=== PATIENT | female | born 1940 | race Caucasian/White ===

== ENCOUNTER → 2017-04-15 | Outpatient (CLI) | payer OTHER ==
[~2017-04-15] MED LIST: AMLO5TAB2 PO; ASPI81TA85 PO; CALA80TA PO; DEXA4TA PO; HYOS0.1259 PO; KEPP1TAB PO; LANO0.1211 PO; LORA0.5T11 PO; MORP1SOL PO; MULT1TAB8 PO; NAPR500T PO; PERC5TAB12 PO; PRED10TA PO; PRED20TAB PO; PROAAER10 INH; PROT1TAB2 PO; RANI150T PO; SYMB16INH INH; TRAM50TA2 PO; TYLE500T78 PO; ULTR37.54 PO
--- NOTE | 2017-04-15 21:56 | ECHO ---
DATE OF PROCEDURE: 04/15/2017 REFERRING PHYSICIAN: Abbie Jean Study was performed on 04/15/2017 on an outpatient basis for indication of transient ischemic attack (TIA). The patient measures 147 cm and weighs 46 kg. DIMENSIONS: IVS: 1.1 LV: 4.7 LVPW: 1.1 LA: 3.5 Aorta: 2.9 FINDINGS: The study is of acceptable technical quality. There are fair parasternal views but good apical views and difficult subcostal views. The patient is in sinus rhythm. Left ventricle is of normal size and grossly normal contractility. I estimate ejection fraction (EF) around 55-60%. No distinct segmental wall motion abnormalities are appreciated. Right ventricle does not appear enlarged. Left atrium is at least mildly enlarged. Right atrium is probably normal. Aortic valve is sclerotic but it has three cusps and preserved mobility. There are degenerative abnormalities of mitral valve with thickening of mitral leaflets and mitral annular calcifications that are mild. Leaflet mobility is again preserved. Tricuspid and pulmonic valves appear grossly normal. No pericardial effusion is present. Inferior vena cava is of relatively small caliber. Aortic root is normal. Aortic arch and abdominal aorta were not visualized. Doppler interrogation of aortic valve reveals no stenosis or insufficiency. There is approximately mild to moderate mitral insufficiency. There is trace tricuspid insufficiency. Unfortunately, quality of TR jet was not sufficient to adequately estimate pulmonary artery pressure. Pulmonic valve is functionally competent. Mitral inflow pattern and tissue Doppler imaging of mitral annulus reveal grade 1 diastolic dysfunction. CONCLUSIONS; 1. Study is of acceptable technical quality. 2. Normal LV size and systolic function, grade 1 diastolic dysfunction. 3. Degenerative abnormalities of aortic and mitral valve resulting in no significant aortic disease and [id number] mitral insufficiency. 4. Likely normal or low central venous pressure. Unable to estimate pulmonary artery pressure. COMMENT: Subacute bacterial endocarditis (SBE) prophylaxis is not recommended. No obvious findings to explain TIA.
== END ==
LOC: M CARPUL 09:57
PROVIDERS: ATTEND Physician Assistant Medical
DX: G45.9 Transient cerebral ischemic attack, unspecified (principal); R53.1 Weakness; R47.89 Other speech disturbances; R51 Headache

== ENCOUNTER 2017-04-21 15:36 | Inpatient (IN) | payer OTHER, MEDICARE ==
[~2017-04-21] VITALS: Ht 144.8 cm; Wt 44.2 kg
[~2017-04-21 15:36] MED LIST changes: -AMLO5TAB2 PO; -ASPI81TA85 PO; -DEXA4TA PO; -HYOS0.1259 PO; -KEPP1TAB PO; -LORA0.5T11 PO; -MORP1SOL PO; -RANI150T PO; +dexameTHASONE 4 MG/ML 1ML VIAL (J1100) IV SCH
[2017-04-21] MEDS ORDERED: RANI150T PO (15:59)
[2017-04-21] MEDS ORDERED: ASPI81TA85 PO (15:59)
[2017-04-21 16:46] LABS: BASO % 1.1 % (0.0-1.0); EOS # 0.1 K/mm3 (0.0-0.50); EOS % 2.6 % (0.0-3.0); LARGE UNSTAINED CELL # 0.1 K/mm3 (0.0-0.4); LARGE UNSTAINED CELL % 1.5 % (0.0-4.0); LYMPH % 19.4 % (24.0-44.0); MEAN CORPUSCULAR HEMOGLOBIN 33.9 pg (27.0-33.0); MEAN CORPUSCULAR HGB CONC 32.7 g/dl (32.0-36.5); MEAN CORPUSCULAR VOLUME 103.6 fl (80.0-96.0); MONO # 0.3 K/mm3 (0.0-0.8); NEUTROPHILS # 3.3 K/mm3 (1.8-7.7); NEUTROPHILS % 69.3 % (36.0-66.0); PLATELET COUNT, AUTOMATED 292 k/mm3 (150-450); RED CELL DISTRIBUTION WIDTH 13.7 % (11.5-14.5); WHITE BLOOD COUNT 4.7 K/mm3 (4.0-10.0)
[2017-04-21 16:51] LABS: INR 0.86
--- NOTE | 2017-04-21 17:01 | REP ---
CT HEAD WITHOUT CONTRAST: HISTORY: Infarction. A hypodense mass is present in the right parietal lobe. The mass measures 1.5 cm in transverse x 2.4 cm in AP dimensions. Surrounding vasogenic edema is present. There is mass effect with partial effacement of the body of the right lateral ventricle with very minimal midline shift to the left. Areas of decreased attenuation are present in the periventricular white matter. This represents small vessel ischemic disease. There is no intraparenchymal hemorrhage. There is no hydrocephalus or extracerebral collection. IMPRESSION: There is a hypodense mass in the right parietal lobe with surrounding vasogenic edema and midline shift to the left. This may represent a primary or metastatic brain tumor. MR of the brain without and with contrast is recommended for further evaluation. Signed by Nino Ritchie MD 04/21/2017 05:06 P
--- NOTE | 2017-04-21 17:02 | REP ---
Portable chest x-ray: Single view. History: CVA. Comparison study 11/08/2014. Findings: EKG electrodes are seen. Mild cardiomegaly is observed. There is no evidence of pleural effusion or pulmonary edema. No infiltrate is seen. The aorta is tortuous. Pulmonary vasculature is not increased. There is diffuse osteopenia. Impression: Cardiomegaly. Otherwise no acute disease. Signed by Jasbir Lawson MD 04/21/2017 05:13 P
[2017-04-21 17:21] LABS: ANION GAP 8 MEQ/L (8-16); BLOOD UREA NITROGEN 18 MG/DL (7-18); CALCIUM LEVEL 9.5 MG/DL (8.8-10.2); CARBON DIOXIDE LEVEL 27 MEQ/L (21-32); CHLORIDE LEVEL 106 MEQ/L (98-107); CREATININE FOR GFR 1.21 MG/DL (0.55-1.02); GLOMERULAR FILTRATION RATE 46.1 (>39); GLUCOSE, FASTING 91 MG/DL (83-110); POTASSIUM SERUM 4.1 MEQ/L (3.5-5.1); SODIUM LEVEL 141 MEQ/L (136-145)
[2017-04-21] MEDS ORDERED: ACETAMINOPHEN TAB 650MG DOSE (2X325MG) PO ONE (18:15)
[2017-04-21] MEDS ORDERED: LORazepam 2 MG/ML VIAL (J2060) IV PRN (18:30)
[2017-04-21] MEDS ORDERED: ONDANSETRON 4MG/2ML VIAL (J2405) IV PRN (18:30)
--- NOTE | 2017-04-21 19:48 | ECGEPIP ---
Stationary ECG Study [facility] - ED Test Date: 2017-04-21 Pat Name: LOURDES BEAVERS Department: Room: - Gender: F Electrotyper Helper: PALAK : 1940 Requested By: Elli Sykes Order Number: [id number] Reading MD: Sahil Mayer Measurements Intervals [place] Rate: 82 P: 49 MS: 119 QRS: -35 QRSD: 93 T: -7 QT: 363 QTc: 426 Interpretive Statements SINUS RHYTHM WITH SHORT MS INTERVAL POSSIBLE LAE LEFT VENTRICULAR HYPERTROPHY AND ST-T CHANGE INFERIOR MYOCARDIAL INFARCTION, OF INDETERMINATE AGE Electronically Signed On 04-21-2017 19:48:02 EDT by Sahil Mayer
[2017-04-21] MEDS ORDERED: GASTROGRAFIN SOLUTION 30ML (Q9963) PO ONE (20:00)
[2017-04-21] MEDS ORDERED: NS 500 ML IV ONE (20:00)
[2017-04-21] MEDS ORDERED: dexameTHASONE 20 MG/5 ML VIAL (J1100) IV ONE (20:00)
[2017-04-21] MEDS ORDERED: ALBUTEROL SULFATE 2.5 MG/0.5 ML INH NEB SOLN INH PRN (20:15)
[2017-04-21] MEDS ORDERED: SODIUM CHLORIDE 0.9% 1000 ML IV ONE (20:15)
[2017-04-21] MEDS ORDERED: ACETAMINOPHEN 500 MG TAB PO PRN (20:15)
[2017-04-21] MEDS ORDERED: NICOTINE 14 MG/24 HR TRANSDERMAL TD PRN (20:15)
[2017-04-21] MEDS ORDERED: levETIRAcetam INJection 500 MG in D5W 100 ML IV ONE (21:00)
--- NOTE | 2017-04-21 21:37 | HPE ---
DATE OF ADMISSION: 04/21/2017 Ms. Martinez is a patient of the family medicine group, Abbie Jean. CHIEF COMPLAINT: Could not walk. The following is a summary of her presentation: This is a 76-year-old who has not been doing well recently. There has been concerns that she was having transient ischemic attacks (TIAs). She had undergone outpatient workup, including an echocardiogram and had been planned for outpatient MRI. Over the course of the last few weeks, she has been intermittently disoriented and short episodes. She has been befuddled and not her normal self mentally. No complaints of pain, chest pain, shortness of breath. She does have a chronic cough; today it was somewhat worse. She had left-sided weakness and could not walk or stand. She was brought to the emergency department for evaluation. As part of the workup, she had a CT scan of her head, which showed evidence of mass with edema and midline shift. In the emergency room (ER), the neurosurgeon was alerted. He suggested further workup, and I was called for admission. PAST MEDICAL HISTORY: Notable for: Osteoarthritis. Chronic obstructive pulmonary disease (COPD) with normal pulmonary function test (PFT) 03/2014. History of gastric ulcer and repair. History of alcohol abuse. No current alcohol use. Nicotine dependence. She continues to smoke. Vitamin D deficiency. Osteoporosis. Hyperlipidemia. ALLERGIES: She had an allergy to DOXYCYCLINE. SURGICAL HISTORY: Notable for; Hysterectomy. Perforated gastric ulcer repair by Dr. Joseph. FAMILY HISTORY: Notable for father who at age 73 with myocardial infarction (MS) and mother at age 71 in a motor vehicle accident. SOCIAL HISTORY: She continues to smoke cigarettes. MEDICATIONS AT HOME: Include the following: - aspirin 81 mg daily - Tylenol - ranitidine 150 mg by mouth daily REVIEW OF SYSTEMS: Notable for generalized headache. No visual changes. No runny nose. No sore throat. No cough. No shortness of breath. No orthopnea. No paroxysmal nocturnal dyspnea. She had left-sided weakness, which has been resolving. No history of seizure or seizure-like activity. PHYSICAL EXAMINATION: Temperature 99.2, pulse 78, respiratory rate 18, blood pressure 191/93, 97% on room air. Body mass index is 20.8. She is awake, appropriately interactive, pleasantly conversant and intermittently making jokes and making fun of our president. Head is Normocephalic. Sinuses are nontender. Pupils equal, round and reactive, anicteric, noninjected. Nasal septum is midline. Mucous membranes are moist. Neck is supple. No cervical or supraclavicular adenopathy. Breathing is symmetrical. I:E ratio is 1:3. Heart is distant sounding. Normal S1, S2. Radial pulse is 2+. Capillary refill is less than 2 seconds. Left upper extremity strength is 4+. Left lower extremity strength is 4+. White cell count 4.7, hemoglobin 14.8, platelets of 292. INR is 0.86, BUN 18, creatinine 1.21, slightly above baseline, troponin less than 0.02. Chest x-ray shows cardiomegaly. Head CT shows a hypodense mass in the right parietal lobe with surrounding vasogenic edema and midline shift to the left. My assessment is as follows: This is a 76-year-old with newly diagnosed brain tumor. Patient will be admitted to the progressive care unit (PCU) for a two midnight hospital stay. Plan will be as follows: 1. Neurologic: Patient will receive Decadron and Keppra. Seizure precautions will be undertaken. MRI of the brain is ordered. Also ordered a CT of the chest, abdomen and pelvis looking for evidence of other malignancy. There is nothing on physical exam that suggests malignancy apart from a relatively low body mass index (BMI). 2. The patient has a history of peptic ulcer. Will continue her H2 soni. 3. The patient has a history of ongoing nicotine dependence, so a nicotine patch will be made available to her if she so desires it. 4. Patient has a history of hyperlipidemia. 5. The patient has a history of chronic obstructive pulmonary disease with normal pulmonary function tests. 6. Patient currently is a FULL CODE and has named her son, Cam Martinez, as her healthcare proxy. Healthcare proxy form is in the chart.
[2017-04-21] MEDS ORDERED: ISOVUE-370 76% 100ML VIAL (Q9967) As Ordered ONE (22:00)
[2017-04-21 22:30] VITALS: BP 189/90
--- NOTE | 2017-04-21 22:40 | REPUSA ---
CT of the abdomen and pelvis with contrast Clinical statement: Pain Brain mass. Technique: Multiple axial CT images were obtained from the base of the lungs through the floor of the pelvis utilizing 5 mm axial slices after administration of oral and nonionic intravenous contrast. C oronal and sagittal reconstructions were also obtained. Comparison: 04/21/2017. Findings: Chest: The visualized lung bases are clear. Abdomen: The liver, spleen, pancreas, kidneys, gallbladder, and adrenal glands are unremarkable. The aorta demonstrates moderate diffuse atherosclerotic calcifications, but is otherwise within normal l imits. There is no evidence of abdominal lymphadenopathy or ascites. Pelvis: The bowel is unremarkable, with no obstructive or inflammatory changes. The urinary bladder i s within normal limits. The other pelvic structures appear grossly intact. There is no evidence of pe lvic lymphadenopathy or ascites. Bones: There are no suspicious osseous abnormalities seen. Severe chronic compression fractures are s een at T11 and T12. Mild osteopenia is appreciated. Impression: 1. No acute intra-abdominal abnormality. 2. Moderate diffuse atherosclerosis of the abdominal aorta, without evidence of aneurysm or dissectio n. 3. Mild diffuse osteopenia. Severe chronic compression fractures at T11 and T12. 4. No evidence of metastatic disease.
--- NOTE | 2017-04-21 22:40 | REPUSA ---
CT angiogram of the chest Clinical statement: brain mass. Technique: Multiple axial CT images were obtained from the thoracic inlet through the upper abdomen a fter a bolus administration of nonionic intravenous contrast. Coronal and sagittal reconstructions we re also obtained. Comparison: None. Findings: The pulmonary arteries are well-opacified with contrast, with no intraluminal filling defec ts to suggest embolism. The thoracic aorta is unremarkable. Thyroid gland is within normal limits. Th ere is no thoracic lymphadenopathy. There are no pericardial or pleural effusions. The lungs are patricia r. Limited imaging of the upper abdomen is unremarkable. There are chronic compression fractures th roughout the thoracic spine. Mild diffuse osteopenia is noted. Impression: 1. No acute intrapulmonary disease. No metastatic disease appreciated. No evidence of pulmonary embo lism. 2. Severe multilevel compression fractures throughout the thoracic spine with mild diffuse osteopenia noted.
[2017-04-21] MEDS: ACETAMINOPHEN TAB 650MG DOSE (2X325MG) PO PRN (23:46)
[2017-04-22] VITALS (7 sets, daily range): BP systolic 117–175; BP diastolic 64–100
[2017-04-22] MEDS: amLODIPine 5 MG TAB PO SCH ×2 (02:00→08:56)
[2017-04-22] MEDS: dexameTHASONE 4 MG/ML 1ML VIAL (J1100) IV SCH ×4 (02:00→20:33)
[2017-04-22] MEDS: ACETAMINOPHEN TAB 650MG DOSE (2X325MG) PO PRN ×2 (08:32→20:32)
[2017-04-22] MEDS: FAMOTIDINE 20 MG TAB PO SCH (08:56)
[2017-04-22] MEDS: levETIRAcetam INJection 500 MG in D5W 100 ML IV SCH ×2 (09:00→20:32)
--- NOTE | 2017-04-22 11:30 | IPNPDOC ---
Subjective Date Seen The patient was seen on 04/22/17. Subjective Chief Complaint/HPI The patient is a 76-year-old female admitted with a reason for visit of Brain Mass. Events since last encounter mild headache today - much better than on admission Constitutional: Denies: Chills, Fever ENT: Reports: Head Aches Pulmonary: Denies: Dyspnea, Cough Cardiovascular: Denies: Chest Pain, Palpitations Gastrointestinal: Denies: Nausea, Vomiting, Abdominal Pain, Diarrhea, Constipation Objective Physical Examination General Exam: Positive: Alert, No Acute Distress Chest Exam: Positive: Clear to auscultation, Normal air movement Heart Exam: Positive: Rate Normal, Negative: Murmurs Abdomen Exam: Positive: Normal bowel sounds, Soft, Negative: Tenderness Extremity Exam: Negative: Edema Neuro Exam: Positive: Normal Speech, Other (face symmetric, speech clear, 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 ) Assessment /Plan Problems (1) CAD (coronary artery disease) Status: Chronic Response to Treatment: Stable Problem Text: No active symptoms 04/21/17 EKG NSR 82 bpm, III, AVF Q waves, LVH voltages 04/2017 TTE: Study is of acceptable technical quality. 2. Normal LV size and systolic function, grade 1 diastolic dysfunction. 3. Degenerative abnormalities of aortic and mitral valve resulting in no significant aortic disease and [id number] mitral insufficiency. 4. Likely normal or low central venous pressure. Unable to estimate pulmonary artery pressure (2) Brain mass Status: Acute Problem Text: Neurosurgery on consult MRI brain done today - planning MRI with stealth protocol in anticipation for surgery 04/23/17 Family meeting with surgeon tomorrow at 9 am to discuss treatment options continue Keppra and Decadron Medically optimized, but moderate risk morbidity/mortality (CAD, p AFib, COPD) check tumor markers 04/22 MRI brain: There is a large enhancing mass in the right parietal and occipital lobes with minimal midline shift to the left. There are three 7 to 8 mm enhancing lesions in the right parietal lobe. A lesion with a 10 mm focus of enhancement is present in the left thalamus. This may are present a multifocal glioblastoma or possibly metastases. 04/21 CT CAP NAD (3) Dysphagia Status: Acute Problem Text: 04/[address] [facility] soft diet/nectar (4) Nicotine dependence Status: Chronic Response to Treatment: Stable Problem Text: Continue Nicoderm (5) Macrocytosis Status: Chronic Problem Text: H/O ETOH abuse in past but per ecw history - quite in 2014 multiple comp fractures on t spine per CT chest Get [place] - Lambda light chains normal B12 in past (6) H/O peptic ulcer Status: Chronic Response to Treatment: Stable Problem Text: continue Pepcid h/O perforated ulcer in past (7) Osteoporosis Problem Text: with multiple comp fractures T spine per CT chest (8) BRENT (acute kidney injury) Problem Text: 04/21 1.2-favor dehydration, recheck now baseline cr 0.9 (9) Paroxysmal atrial fibrillation Status: Chronic Problem Text: no recurrent symptoms NSR on telemetry-last documented 10/2014 c COPD exacerbation (10) COPD (chronic obstructive pulmonary disease) Status: Chronic Response to Treatment: Stable Plan/VTE VTE Prophylaxis Ordered?: Yes (SCDs/TEDS) VS, I&O, 24H, Fishbone Vital Signs/I&O Vital Signs Date Time Temp Pulse Resp B/P (MAP) Pulse Ox O2 Delivery O2 Flow Rate FiO2 04/22/17 08:56 134/90 04/22/17 08:07 Room Air 04/22/17 08:00 98.2 98 19 94 I&O- Last 24 Hours up to 6 AM 04/22/17 05:59 Intake Total 360 ml Output Total 700 ml Balance -340 ml Laboratory Data 24H LABS Laboratory Tests 2 04/21/17 16:27: White Blood Count 4.7, Red Blood Count 4.37, Hemoglobin 14.8, Hematocrit 45.2, Mean Corpuscular Volume 103.6H, Mean Corpuscular Hemoglobin 33.9H, Mean Corpuscular Hemoglobin Concent 32.7, Red Cell Distribution Width 13.7, Platelet Count 292, Neutrophils (%) (Auto) 69.3H, Lymphocytes (%) (Auto) 19.4L, Monocytes (%) (Auto) 6.0H, Eosinophils (%) (Auto) 2.6, Basophils (%) (Auto) 1.1H , Neutrophils # (Auto) 3.3, Lymphocytes # (Auto) 1.0L, Monocytes # (Auto) 0.3, Eosinophils # (Auto) 0.1, Basophils # (Auto) 0.0, Large Unclassified Cells % 1.5 , Large Unclassified Cells # 0.1, Prothrombin Time 11.8L, Prothromb Time International Ratio 0.86, Anion Gap 8, Glomerular Filtration Rate 46.1, Blood Urea Nitrogen 18, Creatinine 1.21H, Sodium Level 141, Potassium Level 4.1, Chloride Level 106, Carbon Dioxide Level 27, Calcium Level 9.5, Total Creatine Kinase 77, Creatine Kinase MB 1.3, Creatine Kinase MB Relative Index 1.68, Troponin I < 0.02 04/21/17 16:33: Bedside Glucose (Misc Panel) 89 CBC/BMP Laboratory Tests 04/21/17 16:27 Red Blood Count 4.37, Mean Corpuscular Volume 103.6 H, Mean Corpuscular Hemoglobin 33.9 H, Mean Corpuscular Hemoglobin Concent 32.7, Red Cell Distribution Width 13.7, Neutrophils (%) (Auto) 69.3 H, Lymphocytes (%) (Auto) 19.4 L, Monocytes (%) (Auto) 6.0 H, Eosinophils (%) (Auto) 2.6, Basophils (%) ( Auto) 1.1 H, Neutrophils # (Auto) 3.3, Lymphocytes # (Auto) 1.0 L, Monocytes # ( Auto) 0.3, Eosinophils # (Auto) 0.1, Basophils # (Auto) 0.0, Calcium Level 9.5, Total Creatine Kinase 77 ALFREDO CABRERA PA-C Apr 22, 2017 11:30 Felix Rodriguez M.D. Apr 22, 2017 15:16
--- NOTE | 2017-04-22 11:54 | REP ---
MRI BRAIN WITHOUT AND WITH CONTRAST: HISTORY: Right parietal lobe tumor. CONTRAST: ProHance 7 mL. COMPARISON: CT 04/21/2017 A mass with intense heterogeneous enhancement is present in the posterior right parietal and occipital lobes. The mass measures 3.6 cm in transverse x 6 cm in AP x 4.6 cm in cephalocaudal dimensions. A small amount of surrounding vasogenic edema is present. There is mass effect with partial effacement of the overlying cortical sulci and posterior body , atrium and occipital horn of the right lateral ventricle. There is very minimal midline shift to the left. Three small enhancing lesions 7 to 8 mm in size are present in the right partial lobe. A 2.4 cm hyperintense lesion is present in the left thalamus. This contains a 10 mm focus of enhancement. There is no edema surrounding these lesions. . Areas of increased signal intensity on T2-weighted image are present in the periventricular and subcortical white matter. This represents small vessel ischemic disease. The ventricular system and cortical sulci are dilated consistent with mild volume loss. There is no extracerebral collection. The sinuses are clear. IMPRESSION: There is a large enhancing mass in the right parietal and occipital lobes with minimal midline shift to the left. There are three 7 to 8 mm enhancing lesions in the right parietal lobe. A lesion with a 10 mm focus of enhancement is present in the left thalamus. This may are present a multifocal glioblastoma or possibly metastases. Signed by Nino Ritchie MD 04/22/2017 12:17 P
--- NOTE | 2017-04-22 14:49 | REP ---
MR BRAIN WITH CONTRAST: HISTORY: Right parieto-occipital lobe tumor. CONTRAST: ProHance 5 mL. COMPARISON: 04/22/2017. Contrast enhanced MR of the brain was performed for use with the [employer]. A mass with intense heterogeneous enhancement is present in the right parieto-occipital lobes. The mass measures 3.7 cm in transverse by 6 cm in AP dimensions. There is mass effect with partial effacement of the overlying cortical sulci and posterior body , atrium and occipital horn of the right lateral ventricle. There is minimal midline shift to the left. Small enhancing lesions are present in the lateral right parietal lobe and left thalamus. IMPRESSION: Contrast enhanced MR of the brain was performed for use with the [employer] Navigation System. Signed by Nino Ritchie MD 04/22/2017 02:56 P
[2017-04-22 16:07] LABS: ALBUMIN 3.2 GM/DL (3.2-5.2); ALBUMIN/GLOBULIN RATIO 1.07 (1.00-1.93); ALKALINE PHOSPHATASE 57 U/L (45-117); ALT/SGPT 12 U/L (12-78); ANION GAP 10 MEQ/L (8-16); AST/SGOT 12 U/L (15-37); BILIRUBIN,TOTAL 0.2 MG/DL (0.2-1.0); BLOOD UREA NITROGEN 19 MG/DL (7-18); CALCIUM LEVEL 8.6 MG/DL (8.8-10.2); CARBON DIOXIDE LEVEL 23 MEQ/L (21-32); CHLORIDE LEVEL 108 MEQ/L (98-107); CREATININE FOR GFR 0.98 MG/DL (0.55-1.02); GLOMERULAR FILTRATION RATE 58.7 (>39); GLUCOSE, FASTING 131 MG/DL (83-110); POTASSIUM SERUM 4.3 MEQ/L (3.5-5.1); SODIUM LEVEL 141 MEQ/L (136-145); TOTAL PROTEIN 6.2 GM/DL (6.4-8.2)
[2017-04-22 16:12] LABS: CARCINOEMBRYONIC ANTIGEN 0.7 NG/ML (<2.5)
[2017-04-22 16:41] LABS: CA 125 8.3 U/ML (<30.2)
--- NOTE | 2017-04-22 22:33 | IPN ---
DATE: 04/22/2017 NEUROSURGERY Ms. Martinez is a pleasant 76-year-old female with a past medical history of chronic obstructive pulmonary disease (COPD), osteoporosis, alcohol abuse, quitting in 2014, who had presented to the emergency department on 04/21/2017 for concerns of dragging left side lower and upper extremities. Her family had stated that they noticed just within the past few months that she had been becoming more weak, becoming more confused, and reaching for objects in the wrong space. She is accompanied today by multiple family members, including her son and her grandchildren. Her son states that he remembers an episode a few months ago in which they were grocery shopping, and she suddenly became confused, forgetting where she was at and what she was doing there. Over the course of the past 1-2 months, they have noticed a gradual onset of a generalized weakness of her upper and lower extremities, and she gradually became unable to do things around the house as she was previously able to. They noted yesterday a sudden onset of weakness in the left side upper and lower extremities. They were concerned for a stroke, so they had brought her to the emergency room. While in the emergency room, she was found to have a mass in her brain. Neurosurgery had been consulted , and she was admitted to the hospital. OBJECTIVE: GENERAL: She is lying comfortable in bed. She is alert and oriented to person, place, and time. No slurring of her speech is noted on exam. SENSORY: Intact to light touch and sharp in the upper and lower extremities. COORDINATION: She has an intermittent tremor of her right upper extremity that will come and go with activity and at rest. Her [id number]-[id number] exam is mildly impaired on the left. Movements are slow and deliberate bilaterally. MOTOR: Muscle strength in the right upper extremity is about 4+/5 overall. In the left upper extremity she is about 3/5 overall in the left. Her lower extremities she is about 4+/5 in the right lower extremity. The left lower extremity she is about 3+/5. The weakness appears to be greater in her left arm as compared to her left leg. GRAPHESTHESIA: Unable to identify numbers written on her hand. DEEP TENDON REFLEXES: 1+ in upper extremities bilaterally. Absent or equivocal in the lower extremities. Pupils equal, round, and reactive to light and accommodation. Extraocular motions are coarse bilaterally with a nystagmus on far horizontal gaze bilaterally. Her face is symmetric. She is able to smile, frown, puff her cheeks out, and close her eyes tightly symmetrically without any difficulties. Uvula is symmetric. She is able to stick her tongue out and move it side to side. LABORATORY DATA: White blood cell count equals 4.7, hemoglobin is 14.8, hemoglobin is 45.2. Sodium is 141, potassium is 4.1. Her fasting glucose is 91. IMAGING: She had 04/21/[address], showing hypodense mass in the right parietal lobe with surrounding vasogenic edema and a midline shift to the left. This mass is measuring 1.5 cm in transverse and 2.4 cm in anterior-posterior (AP) dimensions. This may represent a primary or metastatic brain tumor. On 04/21/2017, chest x-ray: Cardiomegaly, otherwise no acute disease. Chest CT 04/21/2017: No acute intrapulmonary disease. No metastatic disease appreciated. No evidence of pulmonary embolism. There are severe multilevel compression fractures throughout the thoracic spine with mild diffuse osteopenia noted. On 04/21/2017, abdomen and pelvis CT: No acute intra-abdominal abnormality. Moderate diffuse atherosclerosis of the abdominal aorta without evidence of aneurysm or dissection. Mild diffuse osteopenia. Severe chronic compression fractures at T11 and T12. No evidence of metastatic disease. On 04/22/2017, brain MRI: Large enhancing mass in the right parietal and occipital lobes with minimal midline shift to the left. There are three 7-8 mm enhancing lesions in the right parietal lobe. A lesion with a 10 mm focus of enhancement is present in the left thalamus. This may represent a multifocal glioblastoma or possibly metastasis. The mass is measuring 3.6 cm in transverse and 6 cm in AP and 4.6 cm in cephalocaudal dimension. ASSESSMENT/PLAN: 1. Tumor of brain. Workup for metastasis with CT of abdomen and pelvis and chest x-ray are negative. Per Dr. Seo, ordering MRI with Stealth protocol with and without contrast. Dr. Seo has asked for a family meeting tomorrow at 9 a.m. to discuss the results of this MRI and to question whether or not they would like to proceed with surgery to remove as much tumor as possible and biopsy for confirmation of diagnosis. 2. Seizure prophylaxis. She is currently taking Keppra 500 mg IV every 12 hours , Ativan 1 mg IV every 4 hours as needed seizure. 3. Dr. Seo has asked for a physical therapy (PT) evaluation for functional capacity. [facility]
[2017-04-23] MEDS: dexameTHASONE 4 MG/ML 1ML VIAL (J1100) IV SCH ×4 (01:53→20:16)
[2017-04-23 03:50] VITALS: BP 132/74
[2017-04-23] MEDS: ACETAMINOPHEN TAB 650MG DOSE (2X325MG) PO PRN ×2 (04:47→19:34)
[2017-04-23 08:00] VITALS: BP 122/78
[2017-04-23] MEDS: amLODIPine 5 MG TAB PO SCH (09:06)
[2017-04-23] MEDS: FAMOTIDINE 20 MG TAB PO SCH (09:06)
[2017-04-23] MEDS: levETIRAcetam INJection 500 MG in D5W 100 ML IV SCH ×2 (09:08→20:16)
--- NOTE | 2017-04-23 10:02 | IPNPDOC ---
Subjective Date Seen The patient was seen on 04/23/17. Subjective Chief Complaint/HPI The patient is a 76-year-old female admitted with a reason for visit of Brain Mass. Events since last encounter Patient is without complaints - headache controlled with Tylenol this morning. Not eating much, but tolerating the [facility] soft diet without n/v or signs of aspiration Constitutional: Denies: Chills, Fever Pulmonary: Denies: Dyspnea, Cough Cardiovascular: Denies: Chest Pain, Palpitations, Orthopnea Gastrointestinal: Denies: Nausea, Vomiting, Abdominal Pain, Diarrhea, Constipation Objective Physical Examination General Exam: Positive: Alert, No Acute Distress Chest Exam: Positive: Clear to auscultation, Normal air movement Heart Exam: Positive: Rate Normal, Negative: Murmurs Abdomen Exam: Positive: Normal bowel sounds, Soft, Negative: Tenderness Extremity Exam: Negative: Edema Neuro Exam: Positive: Normal Speech, Other (face symmetric, speech clear, 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 ) Assessment /Plan Problems (1) CAD (coronary artery disease) Status: Chronic Response to Treatment: Stable Problem Text: No active symptoms 04/21/17 EKG NSR 82 bpm, III, AVF Q waves, LVH voltages 04/2017 TTE: Study is of acceptable technical quality. 2. Normal LV size and systolic function, grade 1 diastolic dysfunction. 3. Degenerative abnormalities of aortic and mitral valve resulting in no significant aortic disease and [id number] mitral insufficiency. 4. Likely normal or low central venous pressure. Unable to estimate pulmonary artery pressure (2) Brain mass Status: Acute Problem Text: 04/23 - Neurosurgery on consult - MRI with stealth protocol done in anticipation for surgery family meeting was at 9 today to discuss options ( I have not heard what the decision is) continue Keppra and Decadron Medically optimized, but moderate risk morbidity/mortality (CAD, p AFib, COPD) check tumor markers 04/22 MRI brain: There is a large enhancing mass in the right parietal and occipital lobes with minimal midline shift to the left. There are three 7 to 8 mm enhancing lesions in the right parietal lobe. A lesion with a 10 mm focus of enhancement is present in the left thalamus. This may are present a multifocal glioblastoma or possibly metastases. 04/21 CT CAP NAD (3) Dysphagia Status: Acute Problem Text: 04/[address] needs [facility] soft diet/nectar (4) Nicotine dependence Status: Chronic Response to Treatment: Stable Problem Text: Continue Nicoderm (5) Macrocytosis Status: Chronic Problem Text: H/O ETOH abuse in past but per ecw history - quit in 2014 multiple comp fractures on t spine per CT chest Get [place] - Lambda light chains normal B12 in past (6) H/O peptic ulcer Status: Chronic Response to Treatment: Stable Problem Text: continue Pepcid Hx perforated ulcer in past (7) Osteoporosis Problem Text: with multiple comp fractures T spine per CT chest (8) BRENT (acute kidney injury) Status: Resolved Problem Text: 04/22 - Cr at baseline 04/21 1.2-favor dehydration, recheck now baseline cr 0.9 (9) Paroxysmal atrial fibrillation Status: Chronic Problem Text: no recurrent symptoms NSR on telemetry-last documented 10/2014 c COPD exacerbation (10) COPD (chronic obstructive pulmonary disease) Status: Chronic Response to Treatment: Stable Plan/VTE VTE Prophylaxis Ordered?: Yes (SCDs/TEDS) Plan Therapy: PT, OT, Speech Family Medicine Attending Note: I saw and examined Ms. Martinez early this morning ; I discussed her case with DILAN Young and I agree with her note above. I discussed with patient's nurse - she states that patient's family has decided against surgery at this point, and they requested to speak with the Cancer nurse navigator to discuss palliative options. Per nurse, Nurse Navigator plans to speak with them this afternoon. (KES) VS, I&O, 24H, Fishbone Vital Signs/I&O Vital Signs Date Time Temp Pulse Resp B/P (MAP) Pulse Ox O2 Delivery O2 Flow Rate FiO2 04/23/17 09:06 122/78 04/23/17 08:00 98.0 77 18 93 Room Air I&O- Last 24 Hours up to 6 AM 04/23/17 06:00 Intake Total 410 ml Output Total 200 ml Balance 210 ml Laboratory Data 24H LABS Laboratory Tests 2 04/22/17 12:06: 04/22/17 15:17: Anion Gap 10, Glomerular Filtration Rate 58.7, Blood Urea Nitrogen 19H, Creatinine 0.98, Sodium Level 141, Potassium Level 4.3, Chloride Level 108H, Carbon Dioxide Level 23, Calcium Level 8.6L, Aspartate Amino Transf (AST/SGOT) 12L, Alanine Aminotransferase (ALT/SGPT) 12, Total Creatine Kinase 125, Alkaline Phosphatase 57, Total Bilirubin 0.2, Total Protein 6.2L, Albumin 3.2, Creatine Kinase MB 2.5, Creatine Kinase MB Relative Index 2.00, Troponin I < 0.02, Albumin/Globulin Ratio 1.07, Carcinoembryonic Antigen 0.7, CA 15-3 Antigen 16.7, CA 125 Antigen 8.3, Vitamin B12 Level 479 CBC/BMP Laboratory Tests 04/22/17 15:17 Calcium Level 8.6 L, Aspartate Amino Transf (AST/SGOT) 12 L, Alanine Aminotransferase (ALT/SGPT) 12, Total Creatine Kinase 125, Alkaline Phosphatase 57, Total Bilirubin 0.2, Total Protein 6.2 L, Albumin 3.2 ALFREDO CABRERA PA-C Apr 23, 2017 10:02 ZEFERINO AYALA MD Apr 23, 2017 10:24
[2017-04-23 12:00] VITALS: BP 120/78
[2017-04-23] MEDS ORDERED: SLF 3 ML SYR IV PRN (16:15)
[2017-04-23] MEDS: SLF 3 ML SYR IV SCH (20:16)
--- NOTE | 2017-04-23 22:41 | IPNPDOC ---
Neurosurgery Date: Apr 23, 2017 Progress Note NEUROSURGERY DILAN Flor, dictating note on behalf of Dr. Seo. I had no interaction with the patient or family today. Discussion with family held today by Dr. Seo. Explained and discussed different options. They understand they can further discuss with Social Work, Palliative Care, and Oncology consults. They will discuss their options as a family and will check back with them for their decision. Current Medications Current Medications Acetaminophen (Tylenol Tab) 500 mg Q4HP PRN PO PAIN; Start 04/21/17 at 20:15; Stop 05/21/17 at 20:14; Status UNV Acetaminophen (Tylenol Tab) 650 mg Q4HP PRN PO MILD PAIN OR FEVER Last administered on 04/23/17 19:34; Start 04/21/17 at 18:30; Stop 05/21/17 at 18:29 Albuterol Sulfate (Proventil Neb) 2.5 mg Q2HP PRN INH SOB/WHEEZING; Start 04/21 at 20:15; Stop 05/21/17 at 20:14 Amlodipine Besylate (Norvasc) 5 mg DAILY PO Last administered on 04/23/17 09: 06; Start 04/22/17 at 01:15; Stop 05/22/17 at 01:14 Dexamethasone (Decadron) 4 mg Q6H IV ; Start 04/21/17 at 02:00; Stop 04/21/17 at 23:05; Status DC Dexamethasone (Decadron) 4 mg Q6H IV Last administered on 04/23/17 20:16; Start 04/22/17 at 02:00; Stop 05/22/17 at 01:59 Famotidine (Pepcid) 20 mg DAILY PO Last administered on 04/23/17 09:06; Start 04/22/17 at 09:00; Stop 05/22/17 at 08:59 Home Med (Med Rec Complete!) ASDIRECTED XX ; Start 04/21/17 at 18:15; Stop at 18:15; Status DC Levetiracetam 500 mg/Dextrose 105 ml @ 430 mls/hr Q12H IV Last administered on 04/23/17 20:16; Start 04/22/17 at 09:00; Stop 05/22/17 at 08:59 Lorazepam (Ativan) 1 mg Q4HP PRN IV seizure; Start 04/21/17 at 18:30; Stop at 18:29 Nicotine (Nicoderm Cq 14mg) 1 patch DAILYPRN PRN TD NICOTINE WITHDRAWAL; Start 04/21/17 at 20:15; Stop 05/21/17 at 20:14 Ondansetron HCl (ZOFRAN INJection) 4 mg Q6HP PRN IV NAUSEA OR VOMITING; Start 04/21/17 at 18:30; Stop 05/21/17 at 18:29 Sodium Chloride (Saline Lock Flush) 2 ml ASDIRECTED PRN IV SEE LABEL COMMENTS; Start 04/23/17 at 16:15; Stop 05/23/17 at 16:14 Sodium Chloride (Saline Lock Flush) 2 ml SLF IV Last administered on 04/23/17t 20:16; Start 04/23/17 at 22:00; Stop 05/23/17 at 21:59 Allergies: Coded Allergies: No Known Allergies (Unverified , 11/05/14) LEXI HERNANDEZ PA-C Apr 23, 2017 22:41
[2017-04-24 00:06] LABS: FREE KAPPA LIGHT CHAINS SERUM 12.8 mg/L (3.3-19.4); FREE LAMBDA LIGHT CHAINS SERUM 17.4 mg/L (5.7-26.3); KAPPA/LAMBDA RATIO SERUM 0.74 (0.26-1.65)
[2017-04-24] MEDS: dexameTHASONE 4 MG/ML 1ML VIAL (J1100) IV SCH ×4 (02:54→20:27)
[2017-04-24] MEDS: SLF 3 ML SYR IV SCH ×3 (06:03→20:27)
[2017-04-24] MEDS: ACETAMINOPHEN TAB 650MG DOSE (2X325MG) PO PRN ×3 (07:59→20:32)
[2017-04-24] MEDS: amLODIPine 5 MG TAB PO SCH (08:01)
[2017-04-24] MEDS: FAMOTIDINE 20 MG TAB PO SCH (08:01)
[2017-04-24] MEDS: levETIRAcetam INJection 500 MG in D5W 100 ML IV SCH ×2 (08:02→20:27)
--- NOTE | 2017-04-24 12:41 | IPNPDOC ---
Subjective Date Seen The patient was seen on 04/24/17. Subjective Chief Complaint/HPI The patient is a 76-year-old female admitted with a reason for visit of Brain Mass. Events since last encounter Appetite poor, but no n/v. Headache controlled with Tylenol Constitutional: Denies: Chills, Fever ENT: Reports: Head Aches Pulmonary: Denies: Dyspnea, Cough Cardiovascular: Denies: Chest Pain, Palpitations Gastrointestinal: Denies: Nausea, Vomiting, Abdominal Pain, Diarrhea, Constipation Objective Physical Examination General Exam: Positive: Alert, No Acute Distress Chest Exam: Positive: Clear to auscultation, Normal air movement Heart Exam: Positive: Rate Normal, Negative: Murmurs Abdomen Exam: Positive: Normal bowel sounds, Soft, Negative: Tenderness Extremity Exam: Negative: Edema Neuro Exam: Positive: Normal Speech, Other (face symmetric, speech clear, 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 ) Assessment /Plan Problems (1) Brain mass Status: Acute Problem Text: 04/24 - Patietn and family met with Neurosurgery - she has opted to go home with hospice rather than undergo surgery Plan is to d/c with hospice tomorrow - will need to convert Decadron and Keppra to oral forms Needs hospital bed on d/c 04/23 - Neurosurgery on consult - MRI with stealth protocol done 04/23/17 in anticipation for surgery family meeting was at 9 today to discuss options ( I have not heard what the decision is) continue Keppra and Decadron Medically optimized, but moderate risk morbidity/mortality (CAD, p AFib, COPD) check tumor markers 04/22 MRI brain: There is a large enhancing mass in the right parietal and occipital lobes with minimal midline shift to the left. There are three 7 to 8 mm enhancing lesions in the right parietal lobe. A lesion with a 10 mm focus of enhancement is present in the left thalamus. This may are present a multifocal glioblastoma or possibly metastases. 04/21 CT CAP NAD (2) CAD (coronary artery disease) Status: Chronic Response to Treatment: Stable Problem Text: No active symptoms 04/21/17 EKG NSR 82 bpm, III, AVF Q waves, LVH voltages 04/2017 TTE: Study is of acceptable technical quality. 2. Normal LV size and systolic function, grade 1 diastolic dysfunction. 3. Degenerative abnormalities of aortic and mitral valve resulting in no significant aortic disease and [id number] mitral insufficiency. 4. Likely normal or low central venous pressure. Unable to estimate pulmonary artery pressure (3) Dysphagia Status: Acute Problem Text: 04/[address] [facility] soft diet/nectar (4) Nicotine dependence Status: Chronic Response to Treatment: Stable Problem Text: Continue Nicoderm (5) Macrocytosis Status: Chronic Problem Text: H/O ETOH abuse in past but per ecw history - quit in 2014 multiple comp fractures on t spine per CT chest Get [place] - Lambda light chains normal B12 in past (6) H/O peptic ulcer Status: Chronic Response to Treatment: Stable Problem Text: continue Pepcid Hx perforated ulcer in past (7) Osteoporosis Problem Text: with multiple comp fractures T spine per CT chest (8) BRENT (acute kidney injury) Status: Resolved Problem Text: 04/22 - Cr at baseline 04/21 1.2-favor dehydration, recheck now baseline cr 0.9 (9) Paroxysmal atrial fibrillation Status: Chronic Problem Text: no recurrent symptoms NSR on telemetry-last documented 10/2014 c COPD exacerbation (10) COPD (chronic obstructive pulmonary disease) Status: Chronic Response to Treatment: Stable Plan/VTE VTE Prophylaxis Ordered?: Yes (SCDs/TEDS) Plan Therapy: PT, OT, Speech Disposition d/c home with hospice tomorrow VS, I&O, 24H, Fishbone Vital Signs/I&O Vital Signs Date Time Temp Pulse Resp B/P (MAP) Pulse Ox O2 Delivery O2 Flow Rate FiO2 04/24/17 10:51 Room Air 04/24/17 08:01 69 122/78 04/23/17 12:00 97.9 18 95 I&O- Last 24 Hours up to 6 AM 04/24/17 06:00 Intake Total 240 ml Output Total 0 ml Balance 240 ml ALFREDO CABRERA PA-C Apr 24, 2017 12:41
[2017-04-25] MEDS: dexameTHASONE 4 MG/ML 1ML VIAL (J1100) IV SCH ×2 (02:28→09:00)
[2017-04-25] MEDS: SLF 3 ML SYR IV SCH (05:00)
[2017-04-25] MEDS ORDERED: levETIRAcetam INJection 500 MG in D5W MINI-BAG PLUS 100 ML IV SCH ×2 (08:30→09:00)
[2017-04-25] MEDS: FAMOTIDINE 20 MG TAB PO SCH (08:59)
[2017-04-25 09:00] VITALS: BP 122/78
[2017-04-25] MEDS: amLODIPine 5 MG TAB PO SCH (09:00)
[2017-04-25] MEDS ORDERED: KEPP1TAB PO (10:36)
[2017-04-25] MEDS ORDERED: DEXA4TA PO (10:36)
[2017-04-25] MEDS ORDERED: LORA0.5T11 PO (10:36)
[2017-04-25] MEDS ORDERED: AMLO5TAB2 PO (10:36)
[2017-04-25] MEDS ORDERED: HYOS0.1259 PO (10:36)
[2017-04-25] MEDS ORDERED: MORP1SOL PO (10:36)
[2017-04-25] MEDS: ACETAMINOPHEN TAB 650MG DOSE (2X325MG) PO PRN (11:15)
--- NOTE | 2017-04-26 13:07 | DSES ---
DATE OF ADMISSION: 04/21/2017 DATE OF DISCHARGE: 04/25/2017 ATTENDING PHYSICIAN: Dr. Felix Rodriguez BRIEF HISTORY AND PHYSICAL: The patient is a 77-year-old, patient of Abbie Jean, who presented with concerns that she was having a transient ischemic attack. She was seen in the office and had initiated an outpatient workup and had an MRI planned, but has been deteriorating and having short episodes of confusion with left-sided weakness and inability to walk or stand. PAST MEDICAL HISTORY: Significant for osteoarthritis, chronic obstructive pulmonary disease (COPD) with normal pulmonary function tests, history of gastric ulcer and repair, history of alcohol abuse but no current alcohol use, nicotine dependence and continues to smoke, vitamin D deficiency, osteoporosis, hyperlipidemia. LABORATORY DATA: Pertinent labs on admission: White count 4.7, hemoglobin 14.8, platelets 292,000, BUN 18, creatinine 1.2. Chest x-ray showed cardiomegaly. CT of the head showed a hypodense mass in the right parietal lobe with surrounding vasogenic edema and midline shift to the left. HOSPITAL COURSE: The patient was admitted for a newly diagnosed brain tumor with left-sided weakness, intermittent confusion and inability to ambulate. She was placed on IV Decadron, IV Keppra, as well as seizure precautions. She was evaluated by Dr. Seo from neurosurgery, who ordered a followup MRI of the brain, showing large enhancing mass in the right parietal and occipital lobes with minimal midline shift to the left with a 7.8 mm enhancing lesion in the right parietal lobe with the 10 mm focus of enhancement present in the left thalamus, may represent multifocal glioblastoma or possibly metastasis. She did have a CT of the abdomen, pelvis and chest to evaluate for another primary. These were negative. Conversation occurred with the patient and family to help decide whether or not the patient would like to undergo surgical resection of the tumor and biopsy for confirmation of diagnosis. The family opted to pursue palliative care and she is being discharged home on hospice. Her mental status at the time of discharge: She is alert. She is conversant. She gets confused at times. She has left-sided weakness and has a slight headache at times, which is relieved with Tylenol. She is not requiring any narcotics or stronger pain medication. Her appetite is poor but she does not have any nausea or vomiting. She looks frail, weak and cachectic but is alert and interactive. She will be discharged home with oral Keppra for seizure prevention, as well as Decadron and the usual medications per hospice. DISPOSITION: She is being discharged home on hospice today. She was evaluated by speech therapy and they have recommended mechanical soft and nectar thickened liquids. Activity as tolerated with assistance. She will have 24-hour care. MEDICATIONS: Her medications include: - amlodipine 5 mg daily - dexamethasone 4 mg every 6 hours - Keppra 500 mg every 12 hours - hyoscyamine sulfate 0.125 mg per 5 mL, 0.25 mg by mouth every 4 hours as needed for terminal secretions - lorazepam 0.4 mg every 4 hours as needed for agitation or anxiety - morphine sulfate concentrate 10 mg per 5 mL, 0.25 to 1 mL every 2 hours as needed for pain or dyspnea - Tylenol 500 mg every 4 hours as needed for pain - ranitidine 150 mg daily DISCHARGE DIAGNOSES 1. Newly diagnosed tumor of the brain with left-sided weakness and episodic confusion with difficulty ambulating. 2. Hypertension. 3. History of peptic ulcer disease.
== END 2017-04-25 11:39 | disposition hospice, home (50) | DRG 54 ==
LOC: M ED 15:36 → M ED INP 18:26 → M PCU 22:26 → M MSPAV 04-23 20:46
PROVIDERS: ADMIT Internal Medicine; ATTEND Family Medicine
DX: D43.0 Neoplasm of uncertain behavior of brain, supratentorial (principal); G93.6 Cerebral edema; G81.94 Hemiplegia, unspecified affecting left nondominant side; I25.10 Atherosclerotic heart disease of native coronary artery without angina pectoris; J44.9 Chronic obstructive pulmonary disease, unspecified; F10.21 Alcohol dependence, in remission; F17.210 Nicotine dependence, cigarettes, uncomplicated; E55.9 Vitamin D deficiency, unspecified; M81.0 Age-related osteoporosis without current pathological fracture; E78.5 Hyperlipidemia, unspecified; I10 Essential (primary) hypertension; Z79.899 Other long term (current) drug therapy; Z88.1 Allergy status to other antibiotic agents; Z90.710 Acquired absence of both cervix and uterus; Z82.49 Family history of ischemic heart disease and other diseases of the circulatory system